=== PATIENT | female | born 1960 | race Native Hawaiian/Other Pacific Islander ===

== ENCOUNTER 2022-08-14 20:14 | Emergency (ER) | payer OTHER ==
[~2022-08-14] VITALS: Ht 157.5 cm; Wt 74.8 kg
== END 2022-08-14 21:35 | disposition home or self-care (01) ==
LOC: ED 20:14
DX: M54.9 Dorsalgia, unspecified (principal); E66.9 Obesity, unspecified; R25.1 Tremor, unspecified
CPT/HCPCS: 96372; 99282; J1885